=== PATIENT | female | born 1980 | race Two or more races ===

== ENCOUNTER 2016-05-09 08:05 | Emergency (ER) | payer OTHER ==
[2016-05-09] MEDS ORDERED: KETOROLAC 60 MG/2 ML VIAL IM STA (08:24)
[2016-05-09] MEDS ORDERED: ONDANSETRON ODT 4 MG TABLET TL STA (08:24)
[2016-05-09] MEDS ORDERED: ONDANSETRON ODT 4 MG TABLET ONE (08:26)
[2016-05-09] MEDS ORDERED: KETOROLAC 60 MG/2 ML VIAL ONE (08:26)
[2016-05-09] MEDS ORDERED: diphenhydrAMINE INJ 50 MG/ML VIAL IVP STA (10:26)
[2016-05-09] MEDS ORDERED: PROCHLORPERAZINE 10 MG/2 ML VIAL IVP STA (10:26)
[2016-05-09] MEDS ORDERED: SODIUM CHLORIDE 0.9% 1,000 ML IV ONE (10:26)
[2016-05-09] MEDS ORDERED: ACETAMINOPHEN 1,000 MG/100 ML 100 ML IV STA (10:26)
[2016-05-09] MEDS ORDERED: diphenhydrAMINE INJ 50 MG/ML VIAL ONE (10:38)
[2016-05-09] MEDS ORDERED: PROCHLORPERAZINE 10 MG/2 ML VIAL ONE (10:39)
[2016-05-09] MEDS ORDERED: ONDANSETRON 4 MG/2 ML VIAL ONE (10:39)
[2016-05-09] MEDS ORDERED: ACETAMINOPHEN 1,000 MG/100 ML 100 ML IV ONE (10:39)
== END 2016-05-09 11:30 | disposition home or self-care (01) ==
DX: R51 Headache (principal)
CPT/HCPCS: 96372; 96374; 96375; 99283; 99284; J0131; Q0162